=== PATIENT | male | born 1970 | race Caucasian/White ===

== ENCOUNTER 2019-04-05 15:00 | Inpatient (IN) | payer OTHER ==
[2019-04-05 18:41] VITALS: BMI 28.0
--- NOTE | 2019-04-05 22:23 | HP ---
COWS - Scale Resting Pulse: 0= [place] 80 or Below Sweatin=Flushed/Facial Moisture Restless Observation: 0= Sits Still Pupil Size: 2= Moderately Dilated (Pupils = 5 mm) Bone or Joint Aches: 2= Severe Diffuse Aches Runny Nose/ Eye Tearin= Nasal Congestion GI Upset > 30mins: 2= Nausea/Diarrhea Tremor Observation: 2= Slight Tremor Visible Yawning Observation: 1= 1-2x During Session Anxiety or Irritability: 1=Feels Anxious/Irritable Goose Flesh Skin: 0=Smooth Skin COWS Score: 13 CIWA Score - Admission Criteria [facility]ASAS Guidelines: Admission for Medically Managed Detox: Requires at least one of the followin. CIWA greater than 12 2. Seizures within the past 24 hours 3. Delirium tremens within the past 24 hours 4. Hallucinations within the past 24 hours 5. Acute intervention needed for co occurring medical disorder 6. Acute intervention needed for co occurring psychiatric disorder 7. Severe withdrawal that cannot be handled at a lower level of care (continued vomiting, continued diarrhea, abnormal vital signs) requiring intravenous medication and/or fluids 8. Admission ROS [facility] Chief Complaint: Having heroin withdrawal. Allergies/Adverse Reactions: Allergies Allergy/AdvReac Type Severity Reaction Status Date / Time shellfish derived Allergy Severe Difficulty Verified 04/05/19 18:24 Breathing History of Present Illness: 48 yo presents w/ opioid withdrawal seeking detox. Heroin use began at age 45. Current use is 10 bags/ day - nasal. Hx overdose x 3. Last Sep 2018. No Narcan Kit at home. [facility] there's a kit where he uses. Cocaine use began at age 13. Uses 1-3 x/mth. PCP use began at age 13. Uses 3 - 6 x/week. Alcohol - [facility] drinks approx 2-3 beers about once per week. [facility] was on Methadone at [facility]. [facility] was administratively discharged on 04/01/19 w/ last dose of methadone 25 mg. Denies incarceration or fci system past year. PMHx: Cardiomyopathy, Defibrillator insitu (has not f/u w/ hotel attendant in years ); HTN, Elevated Choles, NIDDM; Chronic back and knee pain unrelated to injury ( non-compliant w/ evaluation/ follow-up) Hx PPD + took meds x 9 mths. MHHx: Depression, anxiety. Denies thoughts of harming self or others. Patient Name: Otilio Gallardo Date: 1970 Address: [address] [place] [address] Sex: Male Rx Written Rx Dispensed Drug Quantity Days Supply Prescriber Name 10/24/2018 10/24/2018 methadone hcl 10 mg tablet 11 4 Rakel Glover Search Terms: Otilio Gallardo, 1970 Search Date: 04/05/2019 10:30:39 PM States Searched: [place], [place], [place], [place], [place], [place], [place], [place] The Drug Utilization Report below displays the controlled substance prescriptions, if any, that were dispensed in the indicated state(s). The information displayed on this report is compiled from requests submitted to other states' PMPs, and accurately reflects the information as returned by them. Blank wilkerson indicate data not provided by other state. This report was requested by: Christine Glover | Reference #: [id number] Exam Limitations: No Limitations - Ebola screening Have you traveled outside of the country in the last 21 days: No Have you had contact with anyone from an Ebola affected area: No Have you been sick,other than usual withdrawal symptoms: No (Denies recent exposure to measles) Do you have a fever: No - Review of Systems Constitutional: Chills (r/t withdrawal), Diaphoresis (r/t withdrawal), Changes in sleep (Difficulty falling and staying asleep - does not take any meds) EENT: reports: Blurred Vision, Nose Congestion, Dental Problems (Wears a bridge. Chews and swallows ok.) Respiratory: reports: No Symptoms reported Cardiac: reports: Irregular Heart Rate, Other (Intrnal defibrillator) GI: reports: Blood Streaked Bowels (One episode this a.m. when strained to have BM. States 2 BM's afterward and no blood. ;), Nausea, Vomiting (Vomited up bile - last time 1.5 hrs ago), Indigestion (Heart burn/acid reflux- intrmitent r/t diet/ - not on meds) : reports: No Symptoms Reported Musculoskeletal: reports: Back Pain (Chronic low back achy pain x 5 months. "10 ". Increases w/ sitting for long periods. Improves w/ walking and Aleve. Has not f/u w/ PCP.), Joint Pain ((R) knee achy/sharp pain "10" and (R) leg swelling x 5 months. Increases w/ sitting for long periods. Nothing makes better. Has not f/u w/ Provider.), Muscle Pain Integumentary: reports: No Symptoms Reported Neuro: reports: Numbness (Numbness in (R) leg x 5 months.), Tremors (r/t withdrawal) Endocrine: reports: Increased Thirst Hematology: reports: No Symptoms Reported Psychiatric: reports: Judgement Intact, Orientated x3, Agitated, Anxious, Depressed (Denies thoughts of harming self or others) Patient History - PPD History Previous Implant?: Yes Documented Results: Negative w/o proof Implanted On Prior [facility] Admission?: No PPD to be Administered?: Yes - Smoking Cessation Smoking history: Current every day smoker Have you smoked in the past 12 months: Yes Aproximately how many cigarettes per day: 10 Hx Chewing Tobacco Use: No Initiated information on smoking cessation: Yes 'Breaking Loose' booklet given: 04/06/19 - Substance & Tx. History Hx Alcohol Use: No Hx Substance Use: Yes Substance Use Type: Alcohol, Cocaine, Heroin, Tranquilizers (pcp) Hx Substance Use Treatment: Yes (DETOX, REHAB) - Substances abused Cocaine Substance route: Smoking Frequency: 1-3 times last 30 days Amount used: $20-$40, 4 dime bag Age of first use: 13 Date of last use: 04/04/19 Crack Substance route: Smoking Frequency: 1-3 times last 30 days Amount used: $20-40 Age of first use: 13 Date of last use: 04/04/19 Heroin Substance route: Inhalation Frequency: Daily Amount used: 10 bags per day Age of first use: 45 Date of last use: 04/04/19 PCP Substance route: Smoking Frequency: 3-6 times per week Amount used: 3-4 bags $30 Age of first use: 13 Date of last use: 04/04/19 Admission Physical Exam BHS - Vital Signs Vital Signs: Vital Signs - 24 hr 04/05/19 18:35 Temperature 98.3 F Pulse Rate 59 L Respiratory 16 Rate Blood Pressure 159/90 - Physical General Appearance: Yes: Nourished, Mild Distress, Sweating (Increased facial moisture), Anxious HEENTM: Yes: EOMI (Jerking movement of eyes upon lateral gaze), Hearing grossly Normal, Normocephalic, Normal Voice, ISAURA (Pupils = 5 mm), Pharynx Normal, Nasal Congestion Respiratory: Yes: Lungs Clear, Normal Breath Sounds, No Respiratory Distress Neck: Yes: No masses,lesions,Nodules, Supple Breast: Yes: Breast Exam Deferred Cardiology: Yes: Regular Rhythm, S1, S2, Bradycardia (56), Other (Implanted device insitu (L) chest) Abdominal: Yes: Non Tender, Soft, Increased Bowel Sounds, Protuberent ( Increased abdominal adiposity) Genitourinary: Yes: Within Normal Limits Back: Yes: Normal Inspection Musculoskeletal: Yes: full range of Motion, Gait Steady (but slow), Other Extremities: Yes: Normal Capillary Refill (Pedal pulses (+). No edema.), Tremors (Mild tremors of hands w/ arms extended) Neurological: Yes: cvt rn II-XII NML intact (Jerking movement of eyes upon lateral gaze), Fully Oriented, Alert, Motor Strength 5/5, Normal Response Integumentary: Yes: Normal Color, Warm Lymphatic: Yes: Within Normal Limits - Diagnostic (1) Opioid dependence with withdrawal Current Visit: Yes Status: Acute (2) Cocaine dependence, uncomplicated Current Visit: Yes Status: Chronic (3) Nicotine dependence, uncomplicated Current Visit: Yes Status: Chronic Qualifiers: Nicotine product type: cigarettes Qualified Code(s): F17.210 - Nicotine dependence, cigarettes, uncomplicated (4) Cardiac device in situ Current Visit: Yes Status: Acute (5) Essential (primary) hypertension Current Visit: Yes Status: Chronic (6) Chronic back pain Current Visit: Yes Status: Chronic Qualifiers: Back pain location: low back pain Back pain laterality: unspecified Sciatica presence: unspecified whether sciatica present Qualified Code(s): M54.5 - Low back pain; G89.29 - Other chronic pain (7) Chronic knee pain Current Visit: Yes Status: Chronic Qualifiers: Laterality: right Qualified Code(s): M25.561 - Pain in right knee; G89.29 - Other chronic pain (8) Bradycardia Current Visit: Yes Status: Chronic (9) Diabetes Current Visit: Yes Status: Acute Qualifiers: Diabetes mellitus type: type 2 Diabetes mellitus superintendent terminal insulin use: unspecified superintendent terminal insulin use status Diabetes mellitus complication status : without complication Qualified Code(s): E11.9 - Type 2 diabetes mellitus without complications (10) Cardiomyopathy Current Visit: Yes Status: Chronic Qualifiers: Cardiomyopathy type: unspecified Qualified Code(s): I42.9 - Cardiomyopathy , unspecified (11) History of positive PPD Current Visit: Yes Status: Chronic (12) PCP abuse Current Visit: Yes Status: Chronic Cleared for Admission [facility] - Detox or Rehab [facility] Level of Care: Medically Managed Detox Regimen/Protocol: Methadone Claeared for Rehab Admission: No Breathalyzer - Breathalyzer Breathalyzer: 0 Urine Drug Screen - Test Device Lot number: [id number] Expiration date: 01/26/21 - Control Is test valid?: Yes - Results Drug screen NEGATIVE: No Urine drug screen results: EWA-Cocaine, FEN-Fentanyl, MOP-Opiates, MTD-Methadone Inpatient Rehab Admission - Rehab Decision to Admit Inpatient rehab admission?: No
[2019-04-05] MEDS ORDERED: MAG HYDROX/AL HYDROX/SIMETH 30 ML UNIT-DOSE CUP PO PRN (23:00)
[2019-04-05] MEDS ORDERED: MAGNESIUM CITRATE 300 ML BOTTLE PO PRN (23:00)
[2019-04-05] MEDS ORDERED: PROCHLORPERAZINE MALEATE 5 MG TABLET PO PRN (23:00)
[2019-04-05] MEDS ORDERED: MAGNESIUM HYDROX 2400MG/30ML ORAL SUSPENSION 30 ML CUP PO PRN (23:00)
[2019-04-05] MEDS ORDERED: guaiFENesin 200 MG/10 ML 10 ML UNIT-DOSE CUPS PO PRN (23:00)
[2019-04-05] MEDS ORDERED: METHOCARBAMOL 500 MG TABLET PO PRN (23:00)
[2019-04-05] MEDS ORDERED: BISMUTH SUBSALICYLATE 524 MG/30 ML UD PO PRN (23:00)
[2019-04-05] MEDS ORDERED: ACETAMINOPHEN 325 MG TABLET (FP) PO PRN ×2 (23:00)
[2019-04-05] MEDS ORDERED: MENTHOL/PHENOL 1 EACH UD MM PRN (23:00)
[2019-04-05] MEDS ORDERED: METHADONE HCL 10 MG TABLET (FOR DETOX USE ONLY) PO ONE (23:03)
[2019-04-05] MEDS ORDERED: NALOXONE HCL 0.4 MG/ML VIAL IVPUSH PRN (23:03)
[2019-04-05] MEDS ORDERED: ALBUTEROL SO4 0.083% IH SOL 2.5 MG/3 ML VIAL.NEB. NEB PRN (23:09)
[2019-04-06] MEDS: metFORMIN HCL 500 MG TABLET (FP) PO SCH ×3 (00:06→17:09)
[2019-04-06] MEDS: INSULIN SLIDING SCALE (NOVOLOG) 1 VIAL SQ SCH ×4 (06:11→21:46)
[2019-04-06] MEDS ORDERED: METHADONE HCL 10 MG TABLET (FOR DETOX USE ONLY) ONE (08:36)
[2019-04-06] MEDS ORDERED: METHADONE HCL 5 MG TABLET (FOR DETOX USE ONLY) ONE (08:37)
[2019-04-06] MEDS ORDERED: METHADONE (DETOX) 20 MG, METHADONE (DETOX) 5 MG PO ONE (10:00)
--- NOTE | 2019-04-06 10:33 | PN ---
BHS COWS - Scale Resting Pulse: 0= [place] 80 or Below Sweatin= Chills/Flushing Restless Observation: 1= Difficult to Sit Still Pupil Size: 1= Pupils >than Normal Bone or Joint Aches: 1= Mild Discomfort Runny Nose/ Eye Tearin= Runny Nose/Eyes GI Upset > 30mins: 1= Stomach Cramp Tremor Observation of Outstretched Hands: 1= Tremor [place], Not Seen Yawning Observation: 1= 1-2x During Session Anxiety or Irritability: 1=Feels Anxious/Irritable Goose Flesh Skin: 0=Smooth Skin COWS Score: 10 BHS Progress Note (SOAP) Subjective: patient is first time admitted to [facility] [place] previous negative ppd blood drawn for quantifuron body aches tolerate fluid well stuffy nose Objective: 04/06/19 13:45 Vital Signs Temperature 97.7 F 04/06/19 13:01 Pulse Rate 58 L 04/06/19 13:01 Respiratory Rate 16 04/06/19 13:01 Blood Pressure 175/93 H 04/06/19 13:01 O2 Sat by Pulse Oximetry (%) Laboratory Last Values WBC 6.8 K/mm3 (4.0-10.0) 04/06/19 08:30 RBC 4.55 M/mm3 (4.00-5.60) 04/06/19 08:30 Hgb 13.4 GM/dL (11.7-16.9) 04/06/19 08:30 Hct 39.4 % (35.4-49) 04/06/19 08:30 MCV 86.7 fl (80-96) 04/06/19 08:30 MCH 29.5 pg (25.7-33.7) 04/06/19 08:30 MCHC 34.0 g/dl (32.0-35.9) 04/06/19 08:30 RDW 12.3 % (11.9-15.9) 04/06/19 08:30 Plt Count 138 K/MM3 (134-434) 04/06/19 08:30 MPV 10.0 fl (7.5-11.1) 04/06/19 08:30 Sodium 140 mmol/L (136-145) 04/06/19 08:30 Potassium 3.9 mmol/L (3.5-5.1) 04/06/19 08:30 Chloride 106 mmol/L (98-107) 04/06/19 08:30 Carbon Dioxide 26 mmol/L (21-32) 04/06/19 08:30 Anion Gap 8 MMOL/L (8-16) 04/06/19 08:30 BUN 17.4 mg/dL (7-18) 04/06/19 08:30 Creatinine 1.0 mg/dL (0.55-1.3) 04/06/19 08:30 Est GFR (CKD-EPI)AfAm 101.26 04/06/19 08:30 Est GFR (CKD-EPI)NonAf 87.37 04/06/19 08:30 POC Glucometer 201 UNITS (80-120) 04/06/19 10:56 Random Glucose 272 mg/dL (74-106) H 04/06/19 08:30 Calcium 8.7 mg/dL (8.5-10.1) 04/06/19 08:30 Total Bilirubin 0.3 mg/dL (0.2-1) 04/06/19 08:30 AST 25 U/L (15-37) 04/06/19 08:30 ALT 53 U/L (13-61) 04/06/19 08:30 Alkaline Phosphatase 92 U/L (45-117) 04/06/19 08:30 Total Protein 6.0 g/dl (6.4-8.2) L 04/06/19 08:30 Albumin 3.2 g/dl (3.4-5.0) L 04/06/19 08:30 Urine Color Yellow 04/06/19 10:49 Urine Appearance Clear 04/06/19 10:49 Urine pH 6.5 (5.0-8.0) 04/06/19 10:49 Ur Specific [place] 1.020 (1.010-1.035) 04/06/19 10:49 Urine Protein Negative (NEGATIVE) 04/06/19 10:49 Urine Glucose (UA) 3+ (NEGATIVE) H 04/06/19 10:49 Urine Ketones Negative (NEGATIVE) 04/06/19 10:49 Urine Blood Negative (NEGATIVE) 04/06/19 10:49 Urine Nitrite Negative (NEGATIVE) 04/06/19 10:49 Urine Bilirubin Negative (NEGATIVE) 04/06/19 10:49 Urine Urobilinogen 0.2 mg/dL (0.2-1.0) 04/06/19 10:49 Ur Leukocyte Esterase Negative (NEGATIVE) 04/06/19 10:49 HIV 1&2 Antibody Screen Negative 04/06/19 08:30 HIV P24 Antigen Indeterminate 04/06/19 08:30 lab noted 04/06/19 13:50 bp elevation external medication review resume diltiazen and losartan Assessment: 04/06/19 13:51 opiate withdrawal sx Plan: continue opiate detox
[2019-04-06] MEDS: PRENATAL VITAMINS W/ FOLIC ACID TABLET (FP) PO SCH (10:42)
[2019-04-06] MEDS: HYDROCHLOROTHIAZIDE 12.5 MG CAPSULE (FP) PO SCH (10:42)
[2019-04-06] MEDS: ASPIRIN COATED 81 MG TABLET.EC PO SCH (10:42)
[2019-04-06] MEDS: amLODIPine BESYLATE 10 MG TABLET (FP) PO SCH (10:42)
[2019-04-06] MEDS: FENOFIBRIC ACID 135 MG CAP PO SCH (10:54)
[2019-04-06 12:12] LABS: HEMATOCRIT 39.4 % (35.4-49); HEMOGLOBIN 13.4 GM/dL (11.7-16.9); MCH 29.5 pg (25.7-33.7); MEAN CELL VOLUME 86.7 fl (80-96); PLATELET COUNT 138 K/MM3 (134-434); RBC 4.55 M/mm3 (4.00-5.60); RDW 12.3 % (11.9-15.9); WHITE BLOOD COUNT 6.8 K/mm3 (4.0-10.0)
[2019-04-06] MEDS ORDERED: INSULIN (NOVOLOG) ASPART 100 UNITS/ML 10ML VIAL SQ ONE (12:30)
[2019-04-06 12:39] LABS: PH,URINE 6.5 (5.0-8.0); URINE APPEARANCE CLEAR; URINE BILIRUBIN NEGATIVE (NEGATIVE); URINE COLOR YELLOW; URINE GLUCOSE (UA) 3+ (NEGATIVE); URINE KETONE NEGATIVE (NEGATIVE); URINE LEUK ESTERASE NEGATIVE (NEGATIVE); URINE NITRITE NEGATIVE (NEGATIVE); URINE PROTEIN NEGATIVE (NEGATIVE); URINE UROBILINOGEN 0.2 mg/dL (0.2-1.0)
[2019-04-06] MEDS ORDERED: INSULIN SLIDING SCALE (NOVOLOG) 1 VIAL SQ ONE (12:43)
[2019-04-06 13:05] LABS: ALBUMIN 3.2 g/dl (3.4-5.0); BILIRUBIN,TOTAL 0.3 mg/dL (0.2-1); BLOOD UREA NITROGEN 17.4 mg/dL (7-18); CALCIUM 8.7 mg/dL (8.5-10.1); POTASSIUM 3.9 mmol/L (3.5-5.1)
[2019-04-06] MEDS ORDERED: LOSARTAN POTASSIUM 50 MG TABLET (FP) PO SCH (14:00)
--- NOTE | 2019-04-06 14:35 | EKG ---
Test Reason : Blood Pressure : / mmHG Vent. Rate : 050 BPM Atrial Rate : 050 BPM P-R Int : 174 ms QRS Dur : 166 ms QT Int : 488 ms P-R-T Axes : 012 -70 107 degrees QTc Int : 444 ms SINUS BRADYCARDIA RIGHT BUNDLE BRANCH BLOCK LEFT ANTERIOR FASCICULAR BLOCK BIFASCICULAR BLOCK LEFT VENTRICULAR HYPERTROPHY WITH REPOLARIZATION ABNORMALITY ABNORMAL ECG NO PREVIOUS ECGS AVAILABLE Confirmed by Valeriy Noyola ([id number]) on 04/06/2019 2:34:27 PM Referred By: Confirmed By:Valeriy Noyola
[2019-04-06] MEDS ORDERED: cloNIDine HCL 0.1 MG TABLET PO PRN (18:13)
[2019-04-06] MEDS ORDERED: cloNIDine HCL 0.1 MG TABLET PO ONE (18:30)
--- NOTE | 2019-04-06 18:38 | PN ---
S Progress Note Note: meds verified by RN w/ pharmacy , restarted , latest rx filled 03/25/19
[2019-04-06] MEDS: INSULIN (LEVEMIR) 100 UNITS/ML UNITS SQ SCH (21:40)
[2019-04-06] MEDS: THIAMINE HCL 100 MG TABLET (FP) PO SCH (21:46)
[2019-04-06] MEDS: ATORVASTATIN CA 10 MG TABLET (FP) PO SCH (21:46)
[2019-04-06] MEDS: MELATONIN 5 MG TABLETS PO PRN (21:47)
[2019-04-07] MEDS: INSULIN SLIDING SCALE (NOVOLOG) 1 VIAL SQ SCH ×4 (06:12→21:18)
[2019-04-07] MEDS: metFORMIN HCL 500 MG TABLET (FP) PO SCH ×2 (06:13→16:54)
[2019-04-07] MEDS ORDERED: METHADONE HCL 10 MG TABLET (FOR DETOX USE ONLY) PO ONE (10:00)
[2019-04-07] MEDS: amLODIPine BESYLATE 10 MG TABLET (FP) PO SCH (10:37)
[2019-04-07] MEDS: FENOFIBRIC ACID 135 MG CAP PO SCH (10:37)
[2019-04-07] MEDS: ASPIRIN COATED 81 MG TABLET.EC PO SCH (10:37)
[2019-04-07] MEDS: LOSARTAN POTASSIUM 50 MG TABLET (FP) PO SCH (10:37)
[2019-04-07] MEDS: HYDROCHLOROTHIAZIDE 12.5 MG CAPSULE (FP) PO SCH (10:37)
[2019-04-07] MEDS: PRENATAL VITAMINS W/ FOLIC ACID TABLET (FP) PO SCH (10:38)
--- NOTE | 2019-04-07 12:29 | PN ---
BHS COWS - Scale Resting Pulse: 0= [place] 80 or Below Sweatin= Chills/Flushing Restless Observation: 0= Sits Still Pupil Size: 0= Normal to Room Light Bone or Joint Aches: 1= Mild Discomfort Runny Nose/ Eye Tearin= Nasal Congestion GI Upset > 30mins: 1= Stomach Cramp Tremor Observation of Outstretched Hands: 2= Slight Tremor Visible Yawning Observation: 1= 1-2x During Session Anxiety or Irritability: 2=Irritable/Anxious Goose Flesh Skin: 0=Smooth Skin COWS Score: 9 BHS Progress Note (SOAP) Subjective: feeling better today that lab report informed and explained body aches mild irritable Objective: 04/07/19 12:28 Vital Signs Temperature 96.6 F L 04/07/19 09:10 Pulse Rate 50 L 04/07/19 09:10 Respiratory Rate 18 04/07/19 09:10 Blood Pressure 132/74 04/07/19 09:10 O2 Sat by Pulse Oximetry (%) Laboratory Last Values WBC 6.8 K/mm3 (4.0-10.0) 04/06/19 08:30 RBC 4.55 M/mm3 (4.00-5.60) 04/06/19 08:30 Hgb 13.4 GM/dL (11.7-16.9) 04/06/19 08:30 Hct 39.4 % (35.4-49) 04/06/19 08:30 MCV 86.7 fl (80-96) 04/06/19 08:30 MCH 29.5 pg (25.7-33.7) 04/06/19 08:30 MCHC 34.0 g/dl (32.0-35.9) 04/06/19 08:30 RDW 12.3 % (11.9-15.9) 04/06/19 08:30 Plt Count 138 K/MM3 (134-434) 04/06/19 08:30 MPV 10.0 fl (7.5-11.1) 04/06/19 08:30 Sodium 140 mmol/L (136-145) 04/06/19 08:30 Potassium 3.9 mmol/L (3.5-5.1) 04/06/19 08:30 Chloride 106 mmol/L (98-107) 04/06/19 08:30 Carbon Dioxide 26 mmol/L (21-32) 04/06/19 08:30 Anion Gap 8 MMOL/L (8-16) 04/06/19 08:30 BUN 17.4 mg/dL (7-18) 04/06/19 08:30 Creatinine 1.0 mg/dL (0.55-1.3) 04/06/19 08:30 Est GFR (CKD-EPI)AfAm 101.26 04/06/19 08:30 Est GFR (CKD-EPI)NonAf 87.37 04/06/19 08:30 POC Glucometer 255 UNITS (80-120) 04/07/19 11:06 Random Glucose 272 mg/dL (74-106) H 04/06/19 08:30 Calcium 8.7 mg/dL (8.5-10.1) 04/06/19 08:30 Total Bilirubin 0.3 mg/dL (0.2-1) 04/06/19 08:30 AST 25 U/L (15-37) 04/06/19 08:30 ALT 53 U/L (13-61) 04/06/19 08:30 Alkaline Phosphatase 92 U/L (45-117) 04/06/19 08:30 Total Protein 6.0 g/dl (6.4-8.2) L 04/06/19 08:30 Albumin 3.2 g/dl (3.4-5.0) L 04/06/19 08:30 Urine Color Yellow 04/06/19 10:49 Urine Appearance Clear 04/06/19 10:49 Urine pH 6.5 (5.0-8.0) 04/06/19 10:49 Ur Specific [place] 1.020 (1.010-1.035) 04/06/19 10:49 Urine Protein Negative (NEGATIVE) 04/06/19 10:49 Urine Glucose (UA) 3+ (NEGATIVE) H 04/06/19 10:49 Urine Ketones Negative (NEGATIVE) 04/06/19 10:49 Urine Blood Negative (NEGATIVE) 04/06/19 10:49 Urine Nitrite Negative (NEGATIVE) 04/06/19 10:49 Urine Bilirubin Negative (NEGATIVE) 04/06/19 10:49 Urine Urobilinogen 0.2 mg/dL (0.2-1.0) 04/06/19 10:49 Ur Leukocyte Esterase Negative (NEGATIVE) 04/06/19 10:49 RPR Titer Nonreactive (NONREACTIVE) 04/06/19 08:30 Hep C Ab Diagnostic <0.1 s/co ratio (0.0-0.9) 04/06/19 08:30 HIV 1&2 Ag/Ab, 4th Gen Non reactive (Non Reactive) 04/06/19 08:30 HIV 1&2 Antibody Screen Negative 04/06/19 08:30 HIV P24 Antigen Indeterminate 04/06/19 08:30 lab noted knowledge in glucose serum control Assessment: opiate withdrawal sx Plan: continue opiate detox
[2019-04-07] MEDS: INSULIN (LEVEMIR) 100 UNITS/ML UNITS SQ SCH (21:18)
[2019-04-07] MEDS: THIAMINE HCL 100 MG TABLET (FP) PO SCH (21:19)
[2019-04-07] MEDS: ATORVASTATIN CA 10 MG TABLET (FP) PO SCH (21:19)
[2019-04-07] MEDS: MELATONIN 5 MG TABLETS PO PRN (21:21)
[2019-04-08] MEDS: metFORMIN HCL 500 MG TABLET (FP) PO SCH ×2 (06:21→17:08)
[2019-04-08] MEDS: INSULIN SLIDING SCALE (NOVOLOG) 1 VIAL SQ SCH ×4 (08:34→21:47)
[2019-04-08] MEDS ORDERED: METHADONE (DETOX) 10 MG, METHADONE (DETOX) 5 MG PO ONE (10:00)
[2019-04-08] MEDS: ASPIRIN COATED 81 MG TABLET.EC PO SCH (10:52)
[2019-04-08] MEDS: PRENATAL VITAMINS W/ FOLIC ACID TABLET (FP) PO SCH (10:52)
[2019-04-08] MEDS: LOSARTAN POTASSIUM 50 MG TABLET (FP) PO SCH (10:53)
[2019-04-08] MEDS: FENOFIBRIC ACID 135 MG CAP PO SCH (10:53)
[2019-04-08] MEDS: HYDROCHLOROTHIAZIDE 12.5 MG CAPSULE (FP) PO SCH (10:53)
[2019-04-08] MEDS: amLODIPine BESYLATE 10 MG TABLET (FP) PO SCH (10:53)
[2019-04-08] MEDS ORDERED: METHADONE HCL 5 MG TABLET (FOR DETOX USE ONLY) ONE (10:54)
[2019-04-08] MEDS ORDERED: METHADONE HCL 10 MG TABLET (FOR DETOX USE ONLY) ONE (10:54)
[2019-04-08] MEDS ORDERED: INSULIN SLIDING SCALE (NOVOLOG) 1 VIAL SQ ONE (11:22)
--- NOTE | 2019-04-08 12:23 | PN ---
BHS COWS - Scale Resting Pulse: 0= [place] 80 or Below Sweatin= Chills/Flushing Restless Observation: 0= Sits Still Pupil Size: 0= Normal to Room Light Bone or Joint Aches: 1= Mild Discomfort Runny Nose/ Eye Tearin= Nasal Congestion GI Upset > 30mins: 1= Stomach Cramp Tremor Observation of Outstretched Hands: 1= Tremor [place], Not Seen Yawning Observation: 1= 1-2x During Session Anxiety or Irritability: 1=Feels Anxious/Irritable Goose Flesh Skin: 0=Smooth Skin COWS Score: 7 S Progress Note (SOAP) Subjective: patient prefers not to take lipitor with tripilix at the same period discontinue lipitor 48 years old male admitted on 04/05/19 for opiate withdrawal sx medical history of hypertension and cardiomyopathy hesitating to talk about future planning for opiate recovery discs medication assisted treatment program Objective: 04/08/19 15:04 Vital Signs Temperature 97.8 F 04/08/19 14:26 Pulse Rate 54 L 04/08/19 14:26 Respiratory Rate 18 04/08/19 14:26 Blood Pressure 151/79 04/08/19 14:26 O2 Sat by Pulse Oximetry (%) Laboratory Last Values WBC 6.8 K/mm3 (4.0-10.0) 04/06/19 08:30 RBC 4.55 M/mm3 (4.00-5.60) 04/06/19 08:30 Hgb 13.4 GM/dL (11.7-16.9) 04/06/19 08:30 Hct 39.4 % (35.4-49) 04/06/19 08:30 MCV 86.7 fl (80-96) 04/06/19 08:30 MCH 29.5 pg (25.7-33.7) 04/06/19 08:30 MCHC 34.0 g/dl (32.0-35.9) 04/06/19 08:30 RDW 12.3 % (11.9-15.9) 04/06/19 08:30 Plt Count 138 K/MM3 (134-434) 04/06/19 08:30 MPV 10.0 fl (7.5-11.1) 04/06/19 08:30 Sodium 140 mmol/L (136-145) 04/06/19 08:30 Potassium 3.9 mmol/L (3.5-5.1) 04/06/19 08:30 Chloride 106 mmol/L (98-107) 04/06/19 08:30 Carbon Dioxide 26 mmol/L (21-32) 04/06/19 08:30 Anion Gap 8 MMOL/L (8-16) 04/06/19 08:30 BUN 17.4 mg/dL (7-18) 04/06/19 08:30 Creatinine 1.0 mg/dL (0.55-1.3) 04/06/19 08:30 Est GFR (CKD-EPI)AfAm 101.26 04/06/19 08:30 Est GFR (CKD-EPI)NonAf 87.37 04/06/19 08:30 POC Glucometer 236 UNITS (80-120) 04/08/19 11:19 Random Glucose 272 mg/dL (74-106) H 04/06/19 08:30 Calcium 8.7 mg/dL (8.5-10.1) 04/06/19 08:30 Total Bilirubin 0.3 mg/dL (0.2-1) 04/06/19 08:30 AST 25 U/L (15-37) 04/06/19 08:30 ALT 53 U/L (13-61) 04/06/19 08:30 Alkaline Phosphatase 92 U/L (45-117) 04/06/19 08:30 Total Protein 6.0 g/dl (6.4-8.2) L 04/06/19 08:30 Albumin 3.2 g/dl (3.4-5.0) L 04/06/19 08:30 Urine Color Yellow 04/06/19 10:49 Urine Appearance Clear 04/06/19 10:49 Urine pH 6.5 (5.0-8.0) 04/06/19 10:49 Ur Specific [place] 1.020 (1.010-1.035) 04/06/19 10:49 Urine Protein Negative (NEGATIVE) 04/06/19 10:49 Urine Glucose (UA) 3+ (NEGATIVE) H 04/06/19 10:49 Urine Ketones Negative (NEGATIVE) 04/06/19 10:49 Urine Blood Negative (NEGATIVE) 04/06/19 10:49 Urine Nitrite Negative (NEGATIVE) 04/06/19 10:49 Urine Bilirubin Negative (NEGATIVE) 04/06/19 10:49 Urine Urobilinogen 0.2 mg/dL (0.2-1.0) 04/06/19 10:49 Ur Leukocyte Esterase Negative (NEGATIVE) 04/06/19 10:49 RPR Titer Nonreactive (NONREACTIVE) 04/06/19 08:30 Hep C Ab Diagnostic <0.1 s/co ratio (0.0-0.9) 04/06/19 08:30 HIV 1&2 Ag/Ab, 4th Gen Non reactive (Non Reactive) 04/06/19 08:30 HIV 1&2 Antibody Screen Negative 04/06/19 08:30 HIV P24 Antigen Indeterminate 04/06/19 08:30 TB (QFT) Incubation (.) 04/06/19 09:40 TB Test (QFT) Nil 0.03 IU/mL (.) 04/06/19 09:40 TB Test (QFT) Mitogen >10.00 IU/mL (.) 04/06/19 09:40 TB Test (QFT) Antigen 0.09 IU/mL (.) 04/06/19 09:40 TB Test (QFT) Negative (Negative) 04/06/19 09:40 TB Positive Criteria (.) 04/06/19 09:40 lab noted Assessment: 04/08/19 15:05 opiate withdrawal sx Plan: continue opiate detox
[2019-04-08] MEDS ORDERED: cloNIDine HCL 0.1 MG TABLET PO PRN (15:07)
[2019-04-08] MEDS: THIAMINE HCL 100 MG TABLET (FP) PO SCH (21:46)
[2019-04-08] MEDS: INSULIN (LEVEMIR) 100 UNITS/ML UNITS SQ SCH (21:47)
[2019-04-08] MEDS ORDERED: FENOFIBRIC ACID 135 MG CAP PO SCH ×2 (22:00)
[2019-04-09] MEDS: metFORMIN HCL 500 MG TABLET (FP) PO SCH (06:40)
[2019-04-09] MEDS: INSULIN SLIDING SCALE (NOVOLOG) 1 VIAL SQ SCH (06:40)
[2019-04-09] MEDS ORDERED: METHADONE HCL 5 MG TABLET (FOR DETOX USE ONLY) PO ONE (09:03)
[2019-04-09 09:24] VITALS: BP 152/102; PULSE 72; TEMP 96.7
[2019-04-09] MEDS: LOSARTAN POTASSIUM 50 MG TABLET (FP) PO SCH (09:40)
[2019-04-09] MEDS: PRENATAL VITAMINS W/ FOLIC ACID TABLET (FP) PO SCH (09:40)
[2019-04-09] MEDS: amLODIPine BESYLATE 10 MG TABLET (FP) PO SCH (09:40)
[2019-04-09] MEDS: HYDROCHLOROTHIAZIDE 12.5 MG CAPSULE (FP) PO SCH (09:40)
[2019-04-09] MEDS: ASPIRIN COATED 81 MG TABLET.EC PO SCH (09:40)
[2019-04-09] MEDS ORDERED: METHADONE HCL 10 MG TABLET (FOR DETOX USE ONLY) PO ONE (10:00)
--- NOTE | 2019-04-09 16:37 | PN ---
[facility] COWS - Scale Resting Pulse: 0= PA 80 or Below Sweatin= No chills or Flushing Restless Observation: 1= Difficult to Sit Still Pupil Size: 0= Normal to Room Light Bone or Joint Aches: 0= None Runny Nose/ Eye Tearin= None GI Upset > 30mins: 0= None Tremor Observation of Outstretched Hands: 0= None Yawning Observation: 0= None Anxiety or Irritability: 0= None Goose Flesh Skin: 0=Smooth Skin COWS Score: 1 BHS Progress Note (SOAP) Subjective: Patient denies current Withdrawal / Detox symptoms and reports that he feels well overall at this time. Objective: PATIENT A & O X 3, OBSERVED AMBULATING ON UNIT UNASSISTED. IN NO ACUTE DISTRESS. 04/09/19 16:36 Vital Signs Temperature 96.7 F L 04/09/19 09:23 Pulse Rate 72 04/09/19 09:23 Respiratory Rate 18 04/09/19 09:23 Blood Pressure 152/102 H 04/09/19 09:23 O2 Sat by Pulse Oximetry (%) Laboratory Tests 04/06/19 04/06/19 04/06/19 00:06 05:50 08:30 WBC 6.8 RBC 4.55 Hgb 13.4 Hct 39.4 MCV 86.7 MCH 29.5 MCHC 34.0 RDW 12.3 Plt Count 138 MPV 10.0 Sodium Potassium Chloride Carbon Dioxide Anion Gap BUN Creatinine Est GFR (CKD-EPI)AfAm Est GFR (CKD-EPI)NonAf POC Glucometer 157 166 Random Glucose Calcium Total Bilirubin AST ALT Alkaline Phosphatase Total Protein Albumin Urine Color Urine Appearance Urine pH Ur Specific [place] Urine Protein Urine Glucose (UA) Urine Ketones Urine Blood Urine Nitrite Urine Bilirubin Urine Urobilinogen Ur Leukocyte Esterase RPR Titer Hep C Ab Diagnostic HIV 1&2 Ag/Ab, 4th Gen HIV 1&2 Antibody Screen HIV P24 Antigen TB (QFT) Incubation TB Test (QFT) Nil TB Test (QFT) Mitogen TB Test (QFT) Antigen TB Test (QFT) TB Positive Criteria 04/06/19 04/06/19 04/06/19 08:30 08:30 08:30 WBC RBC Hgb Hct MCV MCH MCHC RDW Plt Count MPV Sodium 140 Potassium 3.9 Chloride 106 Carbon Dioxide 26 Anion Gap 8 BUN 17.4 Creatinine 1.0 Est GFR (CKD-EPI)AfAm 101.26 Est GFR (CKD-EPI)NonAf 87.37 POC Glucometer Random Glucose 272 H Calcium 8.7 Total Bilirubin 0.3 AST 25 ALT 53 Alkaline Phosphatase 92 Total Protein 6.0 L Albumin 3.2 L Urine Color Urine Appearance Urine pH Ur Specific [place] Urine Protein Urine Glucose (UA) Urine Ketones Urine Blood Urine Nitrite Urine Bilirubin Urine Urobilinogen Ur Leukocyte Esterase RPR Titer Nonreactive Hep C Ab Diagnostic HIV 1&2 Ag/Ab, 4th Gen HIV 1&2 Antibody Screen Negative HIV P24 Antigen Indeterminate TB (QFT) Incubation TB Test (QFT) Nil TB Test (QFT) Mitogen TB Test (QFT) Antigen TB Test (QFT) TB Positive Criteria 04/06/19 04/06/19 04/06/19 08:30 08:30 09:40 WBC RBC Hgb Hct MCV MCH MCHC RDW Plt Count MPV Sodium Potassium Chloride Carbon Dioxide Anion Gap BUN Creatinine Est GFR (CKD-EPI)AfAm Est GFR (CKD-EPI)NonAf POC Glucometer Random Glucose Calcium Total Bilirubin AST ALT Alkaline Phosphatase Total Protein Albumin Urine Color Urine Appearance Urine pH Ur Specific [place] Urine Protein Urine Glucose (UA) Urine Ketones Urine Blood Urine Nitrite Urine Bilirubin Urine Urobilinogen Ur Leukocyte Esterase RPR Titer Hep C Ab Diagnostic <0.1 HIV 1&2 Ag/Ab, 4th Gen Non reactive HIV 1&2 Antibody Screen HIV P24 Antigen TB (QFT) Incubation TB Test (QFT) Nil 0.03 TB Test (QFT) Mitogen >10.00 TB Test (QFT) Antigen 0.09 TB Test (QFT) Negative TB Positive Criteria 04/06/19 04/06/19 04/06/19 10:49 10:56 16:26 WBC RBC Hgb Hct MCV MCH MCHC RDW Plt Count MPV Sodium Potassium Chloride Carbon Dioxide Anion Gap BUN Creatinine Est GFR (CKD-EPI)AfAm Est GFR (CKD-EPI)NonAf POC Glucometer 201 166 Random Glucose Calcium Total Bilirubin AST ALT Alkaline Phosphatase Total Protein Albumin Urine Color Yellow Urine Appearance Clear Urine pH 6.5 Ur Specific [place] 1.020 Urine Protein Negative Urine Glucose (UA) 3+ H Urine Ketones Negative Urine Blood Negative Urine Nitrite Negative Urine Bilirubin Negative Urine Urobilinogen 0.2 Ur Leukocyte Esterase Negative RPR Titer Hep C Ab Diagnostic HIV 1&2 Ag/Ab, 4th Gen HIV 1&2 Antibody Screen HIV P24 Antigen TB (QFT) Incubation TB Test (QFT) Nil TB Test (QFT) Mitogen TB Test (QFT) Antigen TB Test (QFT) TB Positive Criteria 04/06/19 04/06/19 04/07/19 20:39 21:38 06:10 WBC RBC Hgb Hct MCV MCH MCHC RDW Plt Count MPV Sodium Potassium Chloride Carbon Dioxide Anion Gap BUN Creatinine Est GFR (CKD-EPI)AfAm Est GFR (CKD-EPI)NonAf POC Glucometer 234 256 179 Random Glucose Calcium Total Bilirubin AST ALT Alkaline Phosphatase Total Protein Albumin Urine Color Urine Appearance Urine pH Ur Specific [place] Urine Protein Urine Glucose (UA) Urine Ketones Urine Blood Urine Nitrite Urine Bilirubin Urine Urobilinogen Ur Leukocyte Esterase RPR Titer Hep C Ab Diagnostic HIV 1&2 Ag/Ab, 4th Gen HIV 1&2 Antibody Screen HIV P24 Antigen TB (QFT) Incubation TB Test (QFT) Nil TB Test (QFT) Mitogen TB Test (QFT) Antigen TB Test (QFT) TB Positive Criteria 04/07/19 04/07/19 04/07/19 11:06 16:30 20:55 WBC RBC Hgb Hct MCV MCH MCHC RDW Plt Count MPV Sodium Potassium Chloride Carbon Dioxide Anion Gap BUN Creatinine Est GFR (CKD-EPI)AfAm Est GFR (CKD-EPI)NonAf POC Glucometer 255 243 248 Random Glucose Calcium Total Bilirubin AST ALT Alkaline Phosphatase Total Protein Albumin Urine Color Urine Appearance Urine pH Ur Specific [place] Urine Protein Urine Glucose (UA) Urine Ketones Urine Blood Urine Nitrite Urine Bilirubin Urine Urobilinogen Ur Leukocyte Esterase RPR Titer Hep C Ab Diagnostic HIV 1&2 Ag/Ab, 4th Gen HIV 1&2 Antibody Screen HIV P24 Antigen TB (QFT) Incubation TB Test (QFT) Nil TB Test (QFT) Mitogen TB Test (QFT) Antigen TB Test (QFT) TB Positive Criteria 04/08/19 04/08/19 04/08/19 05:56 11:19 16:30 WBC RBC Hgb Hct MCV MCH MCHC RDW Plt Count MPV Sodium Potassium Chloride Carbon Dioxide Anion Gap BUN Creatinine Est GFR (CKD-EPI)AfAm Est GFR (CKD-EPI)NonAf POC Glucometer 134 236 222 Random Glucose Calcium Total Bilirubin AST ALT Alkaline Phosphatase Total Protein Albumin Urine Color Urine Appearance Urine pH Ur Specific [place] Urine Protein Urine Glucose (UA) Urine Ketones Urine Blood Urine Nitrite Urine Bilirubin Urine Urobilinogen Ur Leukocyte Esterase RPR Titer Hep C Ab Diagnostic HIV 1&2 Ag/Ab, 4th Gen HIV 1&2 Antibody Screen HIV P24 Antigen TB (QFT) Incubation TB Test (QFT) Nil TB Test (QFT) Mitogen TB Test (QFT) Antigen TB Test (QFT) TB Positive Criteria 04/08/19 04/09/19 20:58 05:51 WBC RBC Hgb Hct MCV MCH MCHC RDW Plt Count MPV Sodium Potassium Chloride Carbon Dioxide Anion Gap BUN Creatinine Est GFR (CKD-EPI)AfAm Est GFR (CKD-EPI)NonAf POC Glucometer 228 130 Random Glucose Calcium Total Bilirubin AST ALT Alkaline Phosphatase Total Protein Albumin Urine Color Urine Appearance Urine pH Ur Specific [place] Urine Protein Urine Glucose (UA) Urine Ketones Urine Blood Urine Nitrite Urine Bilirubin Urine Urobilinogen Ur Leukocyte Esterase RPR Titer Hep C Ab Diagnostic HIV 1&2 Ag/Ab, 4th Gen HIV 1&2 Antibody Screen HIV P24 Antigen TB (QFT) Incubation TB Test (QFT) Nil TB Test (QFT) Mitogen TB Test (QFT) Antigen TB Test (QFT) TB Positive Criteria LABS NOTED. Assessment: 04/09/19 16:36 COMPLETION OF DETOX REGIMEN. Plan: SINCE PATIENT DENIES CURRENT WITHDRAWAL / DETOX SYMPTOMS AND REPORTS THAT HE FEELS WELL OVERALL, AT PATIENTS REQUEST, HE WAS GRANTED AN EARLY DISCHARGE FROM DETOX UNIT TODAY SO THAT HE MAY PROCEED ON TO AFTERCARE PLAN - [facility] ([place], [place]).
--- NOTE | 2019-04-09 16:45 | DS ---
[facility] Detox Discharge Summary Admission Date: 04/05/19 Discharge Date: 04/09/19 - History Present History: Cocaine Dependence, Opioid Dependence, Pcp Dependence Additional Comments: PATIENT DENIES CURRENT WITHDRAWAL / DETOX SYMPTOMS AND REPORTS THAT HE FEELS WELL OVERALL AT TIME OF DISCHARGE FROM DETOX UNIT. PATIENT GOING TO [facility] ([place], [place]) FOR AFTERCARE. PATIENT ADVISED TO FOLLOW-UP WITH [employer] DR. BENÍTEZ ([place], [place]) AFTER DISCHARGE FROM DETOX UNIT FOR GENERAL MEDICAL ASSESSMENT AND FOR 'INDETERMINATE ' HIV P24 ANTIGEN RESULT NOTED ON DETOX ADMISSION LABORATORY ASSESSMENT ( CONFIRMATORY RESULT OF TEST PENDING AND NOT AVAILABLE AT THIS TIME). PATIENT VERBALIZED UNDERSTANDING OF RECOMMENDATION. COPIES OF RESULTS OF ALL LABS DRAWN WHILE ADMITTED FOR DETOX GIVEN TO PATIENT AT TIME OF DISCHARGE FROM DETOX UNIT. PATIENT DECLINED OFFER OF MEDICATION PRESCRIPTION FOR HOME MEDICATION AT TIME OF DISCHARGE FROM DETOX, NOTING THAT HE CURRENTLY. HAS ADEQUATE SUPPLIES OF ALL PRESCRIBED HOME MEDICATIONS AT HOME. PATIENT WAS DISCHARGED FROM DETOX UNIT NI STABLE MEDICAL CONDITION. Pertinent Past History: HTN, Histroy Of Cardiomyopathy, History Of Placement Of Cardiac Defibrillator, Hypercholesterolemia, NIDDM, History Of Chronic Back and Right Knee Pain, History Of Positive PPD (Treated), Depression, Anxiety, History Of Bradycardia, History Of PCP Abuse. - Physical Exam Results Vital Signs: Vital Signs Temperature 96.7 F L 04/09/19 09:23 Pulse Rate 72 04/09/19 09:23 Respiratory Rate 18 04/09/19 09:23 Blood Pressure 152/102 H 04/09/19 09:23 O2 Sat by Pulse Oximetry (%) Pertinent Admission Physical Exam Findings: WITHDRAWAL SYMPTOMS. Laboratory Tests 04/06/19 04/06/19 04/06/19 00:06 05:50 08:30 WBC 6.8 RBC 4.55 Hgb 13.4 Hct 39.4 MCV 86.7 MCH 29.5 MCHC 34.0 RDW 12.3 Plt Count 138 MPV 10.0 Sodium Potassium Chloride Carbon Dioxide Anion Gap BUN Creatinine Est GFR (CKD-EPI)AfAm Est GFR (CKD-EPI)NonAf POC Glucometer 157 166 Random Glucose Calcium Total Bilirubin AST ALT Alkaline Phosphatase Total Protein Albumin Urine Color Urine Appearance Urine pH Ur Specific Odd Urine Protein Urine Glucose (UA) Urine Ketones Urine Blood Urine Nitrite Urine Bilirubin Urine Urobilinogen Ur Leukocyte Esterase RPR Titer Hep C Ab Diagnostic HIV 1&2 Ag/Ab, 4th Gen HIV 1&2 Antibody Screen HIV P24 Antigen TB (QFT) Incubation TB Test (QFT) Nil TB Test (QFT) Mitogen TB Test (QFT) Antigen TB Test (QFT) TB Positive Criteria 04/06/19 04/06/19 04/06/19 08:30 08:30 08:30 WBC RBC Hgb Hct MCV MCH MCHC RDW Plt Count MPV Sodium 140 Potassium 3.9 Chloride 106 Carbon Dioxide 26 Anion Gap 8 BUN 17.4 Creatinine 1.0 Est GFR (CKD-EPI)AfAm 101.26 Est GFR (CKD-EPI)NonAf 87.37 POC Glucometer Random Glucose 272 H Calcium 8.7 Total Bilirubin 0.3 AST 25 ALT 53 Alkaline Phosphatase 92 Total Protein 6.0 L Albumin 3.2 L Urine Color Urine Appearance Urine pH Ur Specific Odd Urine Protein Urine Glucose (UA) Urine Ketones Urine Blood Urine Nitrite Urine Bilirubin Urine Urobilinogen Ur Leukocyte Esterase RPR Titer Nonreactive Hep C Ab Diagnostic HIV 1&2 Ag/Ab, 4th Gen HIV 1&2 Antibody Screen Negative HIV P24 Antigen Indeterminate TB (QFT) Incubation TB Test (QFT) Nil TB Test (QFT) Mitogen TB Test (QFT) Antigen TB Test (QFT) TB Positive Criteria 04/06/19 04/06/19 04/06/19 08:30 08:30 09:40 WBC RBC Hgb Hct MCV MCH MCHC RDW Plt Count MPV Sodium Potassium Chloride Carbon Dioxide Anion Gap BUN Creatinine Est GFR (CKD-EPI)AfAm Est GFR (CKD-EPI)NonAf POC Glucometer Random Glucose Calcium Total Bilirubin AST ALT Alkaline Phosphatase Total Protein Albumin Urine Color Urine Appearance Urine pH Ur Specific Odd Urine Protein Urine Glucose (UA) Urine Ketones Urine Blood Urine Nitrite Urine Bilirubin Urine Urobilinogen Ur Leukocyte Esterase RPR Titer Hep C Ab Diagnostic <0.1 HIV 1&2 Ag/Ab, 4th Gen Non reactive HIV 1&2 Antibody Screen HIV P24 Antigen TB (QFT) Incubation TB Test (QFT) Nil 0.03 TB Test (QFT) Mitogen >10.00 TB Test (QFT) Antigen 0.09 TB Test (QFT) Negative TB Positive Criteria 04/06/19 04/06/19 04/06/19 10:49 10:56 16:26 WBC RBC Hgb Hct MCV MCH MCHC RDW Plt Count MPV Sodium Potassium Chloride Carbon Dioxide Anion Gap BUN Creatinine Est GFR (CKD-EPI)AfAm Est GFR (CKD-EPI)NonAf POC Glucometer 201 166 Random Glucose Calcium Total Bilirubin AST ALT Alkaline Phosphatase Total Protein Albumin Urine Color Yellow Urine Appearance Clear Urine pH 6.5 Ur Specific [place] 1.020 Urine Protein Negative Urine Glucose (UA) 3+ H Urine Ketones Negative Urine Blood Negative Urine Nitrite Negative Urine Bilirubin Negative Urine Urobilinogen 0.2 Ur Leukocyte Esterase Negative RPR Titer Hep C Ab Diagnostic HIV 1&2 Ag/Ab, 4th Gen HIV 1&2 Antibody Screen HIV P24 Antigen TB (QFT) Incubation TB Test (QFT) Nil TB Test (QFT) Mitogen TB Test (QFT) Antigen TB Test (QFT) TB Positive Criteria 04/06/19 04/06/19 04/07/19 20:39 21:38 06:10 WBC RBC Hgb Hct MCV MCH MCHC RDW Plt Count MPV Sodium Potassium Chloride Carbon Dioxide Anion Gap BUN Creatinine Est GFR (CKD-EPI)AfAm Est GFR (CKD-EPI)NonAf POC Glucometer 234 256 179 Random Glucose Calcium Total Bilirubin AST ALT Alkaline Phosphatase Total Protein Albumin Urine Color Urine Appearance Urine pH Ur Specific Odd Urine Protein Urine Glucose (UA) Urine Ketones Urine Blood Urine Nitrite Urine Bilirubin Urine Urobilinogen Ur Leukocyte Esterase RPR Titer Hep C Ab Diagnostic HIV 1&2 Ag/Ab, 4th Gen HIV 1&2 Antibody Screen HIV P24 Antigen TB (QFT) Incubation TB Test (QFT) Nil TB Test (QFT) Mitogen TB Test (QFT) Antigen TB Test (QFT) TB Positive Criteria 04/07/19 04/07/19 04/07/19 11:06 16:30 20:55 WBC RBC Hgb Hct MCV MCH MCHC RDW Plt Count MPV Sodium Potassium Chloride Carbon Dioxide Anion Gap BUN Creatinine Est GFR (CKD-EPI)AfAm Est GFR (CKD-EPI)NonAf POC Glucometer 255 243 248 Random Glucose Calcium Total Bilirubin AST ALT Alkaline Phosphatase Total Protein Albumin Urine Color Urine Appearance Urine pH Ur Specific Odd Urine Protein Urine Glucose (UA) Urine Ketones Urine Blood Urine Nitrite Urine Bilirubin Urine Urobilinogen Ur Leukocyte Esterase RPR Titer Hep C Ab Diagnostic HIV 1&2 Ag/Ab, 4th Gen HIV 1&2 Antibody Screen HIV P24 Antigen TB (QFT) Incubation TB Test (QFT) Nil TB Test (QFT) Mitogen TB Test (QFT) Antigen TB Test (QFT) TB Positive Criteria 04/08/19 04/08/19 04/08/19 05:56 11:19 16:30 WBC RBC Hgb Hct MCV MCH MCHC RDW Plt Count MPV Sodium Potassium Chloride Carbon Dioxide Anion Gap BUN Creatinine Est GFR (CKD-EPI)AfAm Est GFR (CKD-EPI)NonAf POC Glucometer 134 236 222 Random Glucose Calcium Total Bilirubin AST ALT Alkaline Phosphatase Total Protein Albumin Urine Color Urine Appearance Urine pH Ur Specific [place] Urine Protein Urine Glucose (UA) Urine Ketones Urine Blood Urine Nitrite Urine Bilirubin Urine Urobilinogen Ur Leukocyte Esterase RPR Titer Hep C Ab Diagnostic HIV 1&2 Ag/Ab, 4th Gen HIV 1&2 Antibody Screen HIV P24 Antigen TB (QFT) Incubation TB Test (QFT) Nil TB Test (QFT) Mitogen TB Test (QFT) Antigen TB Test (QFT) TB Positive Criteria 04/08/19 04/09/19 20:58 05:51 WBC RBC Hgb Hct MCV MCH MCHC RDW Plt Count MPV Sodium Potassium Chloride Carbon Dioxide Anion Gap BUN Creatinine Est GFR (CKD-EPI)AfAm Est GFR (CKD-EPI)NonAf POC Glucometer 228 130 Random Glucose Calcium Total Bilirubin AST ALT Alkaline Phosphatase Total Protein Albumin Urine Color Urine Appearance Urine pH Ur Specific [place] Urine Protein Urine Glucose (UA) Urine Ketones Urine Blood Urine Nitrite Urine Bilirubin Urine Urobilinogen Ur Leukocyte Esterase RPR Titer Hep C Ab Diagnostic HIV 1&2 Ag/Ab, 4th Gen HIV 1&2 Antibody Screen HIV P24 Antigen TB (QFT) Incubation TB Test (QFT) Nil TB Test (QFT) Mitogen TB Test (QFT) Antigen TB Test (QFT) TB Positive Criteria LABS NOTED. - Treatment Hospital Course: Detox Protocol Followed, Detoxed Safely, Responded well, Discharged Condition Good Patient has Accepted a Rehab Referral to: PT. [facility] ([place], [place]). - Medication Discharge Medications: Ambulatory Orders Albuterol Sulfate Inhaler - [Ventolin Hfa Inhaler -] 1 - 2 inh PO Q4H 04/05/19 Amlodipine Besylate 10 mg PO DAILY 04/05/19 Aspirin [Aspirin EC] 81 mg PO DAILY 04/05/19 Cholecalciferol (Vitamin D3) [Vitamin D3] 1,000 unit PO DAILY 04/05/19 Fenofibrate 145 mg PO DAILY 04/05/19 Hydrochlorothiazide 12.5 mg PO DAILY 04/05/19 Metformin HCl [Glucophage] 500 mg PO BID 04/05/19 Pravastatin Sodium [Pravachol (Nf)] 40 mg PO HS 04/05/19 Diltiazem HCl [Diltiazem ER] 360 mg PO DAILY 04/06/19 Insulin Glargine,Hum.rec.anlog [Basaglar Peterikpen U-100] 21 units SQ HS 04/06/19 Losartan Potassium 100 mg PO DAILY 04/06/19 - Diagnosis (1) Cardiac device in situ Status: Acute (2) Diabetes Status: Acute Qualifiers: Diabetes mellitus type: type 2 Diabetes mellitus tank terminal gauger insulin use: unspecified tank terminal gauger insulin use status Diabetes mellitus complication status : without complication Qualified Code(s): E11.9 - Type 2 diabetes mellitus without complications (3) Opioid dependence with withdrawal Status: Acute (4) Bradycardia Status: Chronic (5) Cardiomyopathy Status: Chronic Qualifiers: Cardiomyopathy type: unspecified Qualified Code(s): I42.9 - Cardiomyopathy , unspecified (6) Chronic back pain Status: Chronic Qualifiers: Back pain location: low back pain Back pain laterality: unspecified Sciatica presence: unspecified whether sciatica present Qualified Code(s): M54.5 - Low back pain; G89.29 - Other chronic pain (7) Chronic knee pain Status: Chronic Qualifiers: Laterality: right Qualified Code(s): M25.561 - Pain in right knee; G89.29 - Other chronic pain (8) Cocaine dependence, uncomplicated Status: Chronic (9) Essential (primary) hypertension Status: Chronic (10) History of positive PPD Status: Chronic (11) Nicotine dependence, uncomplicated Status: Chronic Qualifiers: Nicotine product type: cigarettes Qualified Code(s): F17.210 - Nicotine dependence, cigarettes, uncomplicated (12) PCP abuse Status: Chronic - AMA Did Patient Leave Against Medical Advice: No
[2019-04-10] MEDS ORDERED: METHADONE HCL 5 MG TABLET (FOR DETOX USE ONLY) PO ONE (06:00)
== END 2019-04-09 09:45 | disposition home or self-care (01) | DRG 773 ==
LOC: YASAS 15:00 → Y3N 23:42
PROVIDERS: ADMIT Surgery; ATTEND Surgery
PROC: HZ2ZZZZ Detoxification Services for Substance Abuse Treatment (ICD-10-PCS; principal; 2019-04-05)
DX: F11.23 Opioid dependence with withdrawal (principal); F14.20 Cocaine dependence, uncomplicated; F16.20 Hallucinogen dependence, uncomplicated; F17.210 Nicotine dependence, cigarettes, uncomplicated; F41.9 Anxiety disorder, unspecified; F32.9 Major depressive disorder, single episode, unspecified; I10 Essential (primary) hypertension; I42.9 Cardiomyopathy, unspecified; E78.00 Pure hypercholesterolemia, unspecified; E11.9 Type 2 diabetes mellitus without complications; Z79.84 Long term (current) use of oral hypoglycemic drugs; R00.1 Bradycardia, unspecified; M54.5 Low back pain; M25.561 Pain in right knee; G89.29 Other chronic pain; R76.11 Nonspecific reaction to tuberculin skin test without active tuberculosis; Z95.810 Presence of automatic (implantable) cardiac defibrillator
CPT/HCPCS: 36415; 80053; 81003; 82962; 85027; 86480; 86593; 86803; 87389; 93005; 93010; J0735